=== PATIENT | male | born 1960 | race Caucasian/White ===

== ENCOUNTER → 2017-05-14 | Outpatient (CLI) | payer BC ==
--- NOTE | 2017-05-18 07:56 | SLEEPHOME ---
DATE OF PROCEDURE: 05/14/2017 ORDERED BY: Nancy Spears Diagnostic home sleep testing was performed due to concern for the obstructive sleep apnea syndrome in this patient with a history of excessive somnolence and nonrestorative sleep. For testing, a NOX-T3 respiratory monitoring device was used. Continuous record was made of pulse, oxygen saturation, air flow, chest, abdominal strain and body position. 9 hours and 59 minutes of data were reviewed. There were 7 hours and 44 minutes marked as time in bed. During the interval marked time in bed, there were 41 respiratory events identified of 10 seconds in duration or greater, for a respiratory event index of 5.3. The events were primarily obstructive. Baseline heart rate 80 beats per minute. Pulse rate ranged 70-110. Baseline saturation 93%. Lowest oxygen saturation 84%. Testing was performed in both the supine and nonsupine positions. IMPRESSION: Abnormal home sleep testing with repetitive respiratory events and oxygen desaturations to 84% with a respiratory event index of 5.3 is consistent with the obstructive sleep apnea syndrome. RECOMMENDATION: The patient should be encouraged to undergo a formal sleep evaluation and in-laboratory pressure therapy titration. Copy To: Dr. Walsh
== END ==
LOC: M SLEEP HO 10:48
PROVIDERS: ATTEND Nurse Practitioner Adult Health
DX: G47.9 Sleep disorder, unspecified (principal)

== ENCOUNTER 2018-02-03 23:10 | Emergency (ER) | payer BC ==
[2018-02-03] MEDS: ASPIRIN 81 MG CHEW TABLET PO (23:30)
[2018-02-03] MEDS ORDERED: NITROGLYCERIN 0.4 MG SUBL TABLET SL (23:30)
[2018-02-03] MEDS: NS 1,000 ML IV (23:35)
[2018-02-03 23:48] LABS: BASO # 0.1 10^3/uL (0.0-0.2); BASO % 0.6 % (0.0-1.0); EOS # 0.1 10^3/uL (0.0-0.50); EOS % 1.2 % (0.0-3.0); HEMATOCRIT 47.9 % (42.0-52.0); HEMOGLOBIN 16.8 g/dl (14.0-18.0); IMMATURE GRANULOCYTE % 0.5 % (0-3.0); LYMPH # 1.4 10^3/uL (1.5-4.5); LYMPH % 18.5 % (24.0-44.0); MEAN CORPUSCULAR HEMOGLOBIN 33.7 pg (27.0-33.0); MEAN CORPUSCULAR HGB CONC 35.1 g/dl (32.0-36.5); MEAN CORPUSCULAR VOLUME 96.2 fl (80.0-96.0); MONO # 0.5 10^3/uL (0.0-0.8); MONO % 6.3 % (0.0-5.0); NEUTROPHILS # 5.6 10^3/uL (1.8-7.7); NEUTROPHILS % 72.9 % (36.0-66.0); PLATELET COUNT, AUTOMATED 236 10^3/uL (150-450); RED BLOOD COUNT 4.98 10^6/uL (4.30-6.10); RED CELL DISTRIBUTION WIDTH 12.5 % (11.5-14.5); WHITE BLOOD COUNT 7.7 10^3/uL (4.0-10.0)
[2018-02-04 00:07] LABS: INR 0.95; PROTHROMBIN TIME 12.7 SECONDS (12.4-14.5)
[2018-02-04 00:11] LABS: ALBUMIN 3.9 GM/DL (3.2-5.2); ALBUMIN/GLOBULIN RATIO 1.05 (1.00-1.93); ALKALINE PHOSPHATASE 122 U/L (45-117); ALT/SGPT 26 U/L (12-78); ANION GAP 7 MEQ/L (8-16); AST/SGOT 19 U/L (7-37); BILIRUBIN,DIRECT < 0.1 MG/DL (0.0-0.2); BILIRUBIN,TOTAL 0.3 MG/DL (0.2-1.0); BLOOD UREA NITROGEN 21 MG/DL (7-18); CALCIUM LEVEL 8.8 MG/DL (8.5-10.1); CARBON DIOXIDE LEVEL 28 MEQ/L (21-32); CHLORIDE LEVEL 106 MEQ/L (98-107); CPK CREATINE PHOSPHOKINASE 185 U/L (39-308); CREATININE FOR GFR 0.88 MG/DL (0.70-1.30); GLOMERULAR FILTRATION RATE > 60.0 (>56); GLUCOSE, FASTING 102 MG/DL (70-100); LIPASE 132 U/L (73-393); POTASSIUM SERUM 3.8 MEQ/L (3.5-5.1); SODIUM LEVEL 141 MEQ/L (136-145); TOTAL PROTEIN 7.6 GM/DL (6.4-8.2); TROPONIN I < 0.02 NG/ML (< 0.10)
[2018-02-04] MEDS ORDERED: ISOVUE-370 76% 100ML VIAL (Q9967) As Ordered (00:14)
[2018-02-04] MEDS: LISINOPRIL 10 MG TAB PO (01:00)
[2018-02-04 05:40] LABS: CPK CREATINE PHOSPHOKINASE 130 U/L (39-308); TROPONIN I < 0.02 NG/ML (< 0.10)
[2018-02-04 05:41] LABS: CK-MB VALUE MASS 3.6 NG/ML (0.0-3.6); MB/CK RELATIVE INDEX 2.76 (< OR =4)
== END 2018-02-04 06:35 | disposition home or self-care (01) ==
LOC: M ED 23:10
DX: R00.2 Palpitations (principal); F10.10 Alcohol abuse, uncomplicated; I10 Essential (primary) hypertension; Z79.899 Other long term (current) drug therapy
CPT/HCPCS: Q9967

== ENCOUNTER → 2021-08-13 | Outpatient (CLI) | payer BC ==
[~2021-08-13] MED LIST: LISI10TA22 PO; OMEP40CA4 PO
[2021-08-13 13:03] LABS: HEMOGLOBIN A1c 5.1 %
== END ==
LOC: M LAB 10:36
PROVIDERS: ATTEND Family Medicine
DX: R73.9 Hyperglycemia, unspecified (principal)